=== PATIENT | female | born 1975 | race Caucasian/White ===

== ENCOUNTER → 2020-09-25 | Outpatient (CLI) | payer OTHER ==
--- NOTE | 2020-09-25 17:41 | US ---
EXAM DESCRIPTION: Ultrasound complete Pelvic,Non-OB CLINICAL HISTORY: 45 years, Female, abnormal uterine and vaginal bleeding COMPARISON: None. FINDINGS: Transabdominal pelvic ultrasound. The uterus is anteverted but slightly retroflexed and measures 11 x 5.1 x 6.5 cm. Ill-defined hyperechoic regions in the posterior uterine wall 2.6 cm and in the anterior uterine wall 3.9 cm could represent subtle fibroids although not definite. Endometrium measures 4.0 mm in maximal thickness. Structure labeled right ovary measures 2.0 x 1.1 x 1.4 cm. No follicles are seen within this structure. There is arterial flow on Doppler interrogation and this could represent an atrophic right ovary. Left ovary measures 3.1 x 2.9 x 2.4 cm. Cyst in the left ovary measures 2.8 cm and appears simple, likely physiologic. No follow-up imaging is needed for this finding. There is no adnexal mass or free fluid. IMPRESSION: Question small uterine fibroids. Physiologic appearing cyst in the left ovary 2.8 cm. Small atrophic right ovary. Electronically signed by: Lucien Owens MD 09/25/2020 5:39 PM INFORMATION RESOURCES MANAGER
== END ==
LOC: US 10:37
PROVIDERS: ATTEND Nurse Practitioner Family
DX: N93.8 Other specified abnormal uterine and vaginal bleeding (principal); N85.9 Noninflammatory disorder of uterus, unspecified; N83.311 Acquired atrophy of right ovary; N83.201 Unspecified ovarian cyst, right side